=== PATIENT | female | born 1980 | race Two or more races ===

== ENCOUNTER 2022-07-18 17:22 | Emergency (ER) | payer MEDICAID ==
[~2022-07-18] VITALS: Ht 170.2 cm; Wt 275.0 kg
[2022-07-18 18:45] VITALS: BP 143/98
[2022-07-18] MEDS ORDERED: KETOROLAC TROMETH 30 MG/ML 1ML VIAL IM ONE (19:15)
[2022-07-18] MEDS ORDERED: methylPREDNISolone SOD SUCC 125 MG/2 ML VL IM ONE (19:15)
[2022-07-18] MEDS ORDERED: IBUP800T26 PO (19:49)
[2022-07-18] MEDS ORDERED: CYCL-838 PO (19:49)
== END 2022-07-18 20:04 | disposition home or self-care (01) ==
LOC: ER 17:24
DX: M25.462 Effusion, left knee (principal); X50.1XXA Overexertion from prolonged static or awkward postures, initial encounter; Y93.89 Activity, other specified; Y92.89 Other specified places as the place of occurrence of the external cause; Y99.8 Other external cause status
CPT/HCPCS: 29505; 96372; 99284; J1885; J2930